=== PATIENT | male | born 1970 | race Caucasian/White ===

== ENCOUNTER 2022-09-14 05:45 | Emergency (ER) | payer OTHER, BC ==
[~2022-09-14] VITALS: Ht 180.3 cm; Wt 102.1 kg
== END 2022-09-14 08:25 | disposition left against medical advice (07) ==
LOC: ER 05:45
DX: S39.012A Strain of muscle, fascia and tendon of lower back, initial encounter (principal); M54.42 Lumbago with sciatica, left side; I10 Essential (primary) hypertension; E78.5 Hyperlipidemia, unspecified; E03.9 Hypothyroidism, unspecified; Z79.899 Other long term (current) drug therapy; X50.9XXA Other and unspecified overexertion or strenuous movements or postures, initial encounter
CPT/HCPCS: A9270; J1885